=== PATIENT | female | born 1935 | race Caucasian/White ===

== ENCOUNTER 2018-04-04 09:35 | Day surgery (SDC) | payer OTHER, MEDICARE ==
[2018-03-29 15:41] VITALS: BMI 27.4
[2018-04-04] MEDS ORDERED: ONABOTULINUMTOXINA 200 UNIT/VIAL VIAL NR ONE (12:30)
--- NOTE | 2018-04-04 13:25 | OP ---
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
[2018-04-04] MEDS ORDERED: ONDANSETRON 4 MG/2 ML VIAL IVPUSH PRN (13:37)
[2018-04-04] MEDS ORDERED: LACTATED RINGERS SOLUTION 1,000 ML IV SCH (13:45)
--- NOTE | 2018-04-04 13:47 | OP ---
DATE OF OPERATION: 04/04/2018 PREOPERATIVE DIAGNOSIS: Hyperactive bladder secondary to neurologic disease. POSTOPERATIVE DIAGNOSIS: Hyperactive bladder secondary to neurologic disease. PROCEDURE: Cystoscopy and intravesical injection of Botox. SURGEON: Livan Johnson MD ANESTHESIA: General. DESCRIPTION OF PROCEDURE: The patient was brought in the operating room and placed in the supine position on the operating room table. The patient has a longstanding history of neurologic disease causing overactive bladder. The patient has failed all medication. The patient understands all risks and benefits of the procedure including urinary retention. The patient accepted the risks and the benefits of the procedure and accepts these risks and benefits. The patient was then placed in a dorsal lithotomy position and prepped and draped in the usual sterile manner. Levaquin was given preoperatively for surgical prophylaxis. At this point, cystoscopy was performed. No evidence of bladder stones or neoplasm is noted. There was 2+ bladder trabeculation appreciated. There were 20 injections consisting of Botox each 1 mL are administered above the trigone and the lateral toro of the bladder. They are spaced 1 cm apart. No complications were noted in the injections. The patient tolerated the procedure very well. The disposition of the patient is to the recovery room. Leora [id number]
[2018-04-04 14:04] VITALS: TEMP 97.4
[2018-04-04 15:03] VITALS: BP 148/70; PULSE 76
== END 2018-04-04 14:50 | disposition home or self-care (01) ==
LOC: JASU-SURG 09:35
PROVIDERS: ATTEND Urology
PROC: 3E0K8GC Introduction of Other Therapeutic Substance into Genitourinary Tract, Via Natural or Artificial Opening Endoscopic (ICD-10-PCS; principal; 2018-04-04 11:30)
DX: N32.81 Overactive bladder (principal); N39.41 Urge incontinence; R29.90 Unspecified symptoms and signs involving the nervous system
CPT/HCPCS: 94760; J0585

== ENCOUNTER 2021-10-01 03:13 | Emergency (ER) | payer OTHER, MEDICARE ==
[2021-10-01 03:29] VITALS: BMI 24.3
[2021-10-01] MEDS ORDERED: SODIUM CHLORIDE 500 ML IV STA (03:48)
[2021-10-01 04:50] LABS: BASO % 0.8 % (0-2.0); EOS % 4.2 % (0-4.5); HEMATOCRIT 37.6 % (32.4-45.2); HEMOGLOBIN 12.6 GM/dL (10.7-15.3); LYMPH % 27.1 % (8-40); MCH 28.4 pg (25.7-33.7); MCHC 33.4 g/dl (32.0-36.0); MEAN PLT VOLUME 8.9 fl (7.5-11.1); NEUT % 60.9 % (42.8-82.8); PLATELET COUNT 264 10^3/uL (134-434); RBC 4.42 M/mm3 (3.60-5.2); RDW 14.1 % (11.6-15.6); WHITE BLOOD COUNT 5.4 K/mm3 (4.0-10.0)
[2021-10-01 04:58] LABS: INR 1.27 (0.83-1.09); PROTHROMBIN TIME (PATIENT) 14.6 SEC (9.7-13.0)
[2021-10-01 04:59] LABS: ALBUMIN 2.8 g/dl (3.4-5.0); BLOOD UREA NITROGEN 19.8 mg/dL (7-18); CALCIUM 8.4 mg/dL (8.5-10.1)
[2021-10-01 05:02] LABS: CREATININE 0.7 mg/dL (0.55-1.3)
[2021-10-01 05:04] LABS: BILIRUBIN,TOTAL 0.4 mg/dL (0.2-1); TOT PROT 6.2 g/dl (6.4-8.2)
[2021-10-01 06:46] VITALS: PULSE 67; TEMP 97.5
[2021-10-01 09:46] VITALS: BP 117/67
== END 2021-10-01 09:52 ==
LOC: JER 03:13
PROC: 3E0337Z Introduction of Electrolytic and Water Balance Substance into Peripheral Vein, Percutaneous Approach (ICD-10-PCS; principal; 2021-10-01)
DX: I95.9 Hypotension, unspecified (principal); L03.113 Cellulitis of right upper limb; R21 Rash and other nonspecific skin eruption
CPT/HCPCS: 36415; 70450-TC; 71045-TC-FY; 72125-TC; 80053; 85025; 85610; 85730; 86850; 86900; 86901; 93005; 93010; 99285-25; C9803-CS; U0003; U0005

== ENCOUNTER 2022-06-18 09:01 | Observation (INO) | payer OTHER, MEDICARE ==
[2022-06-18 09:56] LABS: URINE APPEARANCE CLEAR; URINE BILIRUBIN NEGATIVE (NEGATIVE); URINE COLOR YELLOW; URINE GLUCOSE (UA) NEGATIVE (NEGATIVE); URINE KETONE NEGATIVE (NEGATIVE); URINE LEUK ESTERASE NEGATIVE (NEGATIVE); URINE NITRITE NEGATIVE (NEGATIVE); URINE PROTEIN TRACE (NEGATIVE); URINE UROBILINOGEN 0.2 mg/dL (0.2-1.0)
[2022-06-18 11:17] LABS: BASO % 0.7 % (0-2.0); EOS % 4.6 % (0-4.5); HEMATOCRIT 32.7 % (32.4-45.2); HEMOGLOBIN 10.8 GM/dL (10.7-15.3); LYMPH % 26.2 % (8-40); MEAN CELL VOLUME 84.8 fl (80-96); MEAN PLT VOLUME 8.8 fl (7.5-11.1); NEUT % 61.5 % (42.8-82.8); PLATELET COUNT 195 10^3/uL (134-434); RBC 3.85 M/mm3 (3.60-5.2); RDW 14.9 % (11.6-15.6); WHITE BLOOD COUNT 6.7 K/mm3 (4.0-10.0)
[2022-06-18 11:27] LABS: INR 1.08 (0.83-1.09); PROTHROMBIN TIME (PATIENT) 12.5 SEC (9.7-13.0)
[2022-06-18 11:29] LABS: ACTIVATED PTT 31.1 SECONDS (25.2-36.5)
[2022-06-18 11:41] LABS: CALCIUM 9.1 mg/dL (8.5-10.1)
[2022-06-18 11:42] LABS: ALBUMIN 3.2 g/dl (3.4-5.0); BLOOD UREA NITROGEN 18.3 mg/dL (7-18)
[2022-06-18 11:45] LABS: CREATININE 0.7 mg/dL (0.55-1.3)
[2022-06-18 11:46] LABS: BILIRUBIN,TOTAL 0.4 mg/dL (0.2-1)
[2022-06-18] MEDS ORDERED: METOPROLOL TARTRATE 25 MG TABLET (FP) PO ONE (13:17)
[2022-06-18 13:56] VITALS: RESP 18
[2022-06-18] MEDS ORDERED: CHOLECALCIFEROL (VIT D3) 1,000 UNIT (25 MCG) TABLET ONE (14:08)
[2022-06-18] MEDS ORDERED: PANTOPRAZOLE 40 MG TABLET PO ONE (14:08)
[2022-06-18] MEDS ORDERED: METOPROLOL TARTRATE 25 MG TABLET (FP) ONE (14:08)
[2022-06-18] MEDS: CHOLECALCIFEROL (VIT D3) 1,000 UNIT (25 MCG) TABLET PO SCH (14:41)
[2022-06-18] MEDS: PANTOPRAZOLE 40 MG TABLET PO SCH (14:41)
[2022-06-18 16:32] VITALS: BMI 23.1
[2022-06-18] MEDS: LORazepam 2 MG/ML SDV VIAL IVPB PRN (18:01)
[2022-06-18] MEDS: RIVASTIGMINE 9.5 MG/24 HOURS TRANSDERMAL PATCH TD SCH (20:13)
[2022-06-18] MEDS: TOLTERODINE TARTRATE LA 4 MG CAP.SR.24H (FP) PO SCH (20:13)
[2022-06-18] MEDS: MEMANTINE HCL 5 MG TABLET (UD) PO SCH (21:44)
[2022-06-18] MEDS: METOPROLOL TARTRATE 25 MG TABLET (FP) PO SCH (21:44)
[2022-06-18] MEDS ORDERED: QUEtiapine FUMARATE 25 MG TABLET PO SCH (22:00)
[2022-06-18] MEDS ORDERED: MELATONIN 5 MG TABLETS PO SCH (22:00)
[2022-06-19] MEDS: LORazepam 2 MG/ML SDV VIAL IVPB PRN (02:08)
[2022-06-19] MEDS: PANTOPRAZOLE 40 MG TABLET PO SCH (09:59)
[2022-06-19] MEDS: CHOLECALCIFEROL (VIT D3) 1,000 UNIT (25 MCG) TABLET PO SCH (09:59)
[2022-06-19] MEDS: MEMANTINE HCL 5 MG TABLET (UD) PO SCH (09:59)
[2022-06-19] MEDS: METOPROLOL TARTRATE 25 MG TABLET (FP) PO SCH (09:59)
[2022-06-19] MEDS ORDERED: ASCORBIC ACID 500 MG TABLET (FP) PO SCH (10:00)
[2022-06-19] MEDS: TOLTERODINE TARTRATE LA 4 MG CAP.SR.24H (FP) PO SCH (10:00)
[2022-06-19 15:02] VITALS: BP 114/55; PULSE 65; TEMP 97.4
[2022-06-19] MEDS: RIVASTIGMINE 9.5 MG/24 HOURS TRANSDERMAL PATCH TD SCH (16:01)
== END 2022-06-19 16:41 | disposition home or self-care (01) ==
LOC: JER 09:01 → JERBED 11:58 → J4W 14:52
PROVIDERS: ADMIT Internal Medicine; ATTEND Internal Medicine
PROC: 3E033GC Introduction of Other Therapeutic Substance into Peripheral Vein, Percutaneous Approach (ICD-10-PCS; principal; 2022-06-18)
DX: S06.0XAA Concussion with loss of consciousness status unknown, initial encounter (principal); R55 Syncope and collapse; F03.90 Unspecified dementia, unspecified severity, without behavioral disturbance, psychotic disturbance, mood disturbance, and anxiety; I48.91 Unspecified atrial fibrillation; W17.89XA Other fall from one level to another, initial encounter; I11.9 Hypertensive heart disease without heart failure; Y93.9 Activity, unspecified; Y92.9 Unspecified place or not applicable; R29.6 Repeated falls; I73.9 Peripheral vascular disease, unspecified; N32.81 Overactive bladder; M62.81 Muscle weakness (generalized); I25.2 Old myocardial infarction; I25.10 Atherosclerotic heart disease of native coronary artery without angina pectoris; Z96.652 Presence of left artificial knee joint; Z87.891 Personal history of nicotine dependence
CPT/HCPCS: 0241U-QW; 36415; 70450-TC; 71045-TC-FY; 72125-TC; 72170-TC-FY; 80053; 81003; 84484; 85025; 85610; 85730; 86850; 86900; 86901; 87086; 93005; 93010; 93306-TC; 93880-TC; 96374; 99285-25; G0378

== ENCOUNTER 2022-09-02 05:23 | Emergency (ER) | payer OTHER, MEDICARE ==
[2022-09-02 05:48] VITALS: BMI 22.6
[2022-09-02 06:44] LABS: BASO % 1.1 % (0-2.0); EOS % 5.5 % (0-4.5); HEMATOCRIT 32.5 % (32.4-45.2); LYMPH % 23.1 % (8-40); MCH 27.2 pg (25.7-33.7); MCHC 33.7 g/dl (32.0-36.0); MEAN CELL VOLUME 80.8 fl (80-96); MEAN PLT VOLUME 9.2 fl (7.5-11.1); MONO % 7.1 % (3.8-10.2); NEUT % 63.2 % (42.8-82.8); PLATELET COUNT 190 10^3/uL (134-434); RBC 4.03 M/mm3 (3.60-5.2); RDW 15.5 % (11.6-15.6); WHITE BLOOD COUNT 6.8 K/mm3 (4.0-10.0)
[2022-09-02 06:47] LABS: EPI CELLS >36 /uL (0-25.1); HYALINE CASTS 1 /uL (0-3.1); URINE APPEARANCE CLEAR; URINE BACTERIA 185 /uL (0-1359); URINE BILIRUBIN NEGATIVE (NEGATIVE); URINE COLOR YELLOW; URINE GLUCOSE (UA) NEGATIVE (NEGATIVE); URINE KETONE NEGATIVE (NEGATIVE); URINE LEUK ESTERASE 2+ (NEGATIVE); URINE NITRITE NEGATIVE (NEGATIVE); URINE PROTEIN NEGATIVE (NEGATIVE); URINE RBC 20 /uL (0-23.9); URINE UROBILINOGEN 0.2 mg/dL (0.2-1.0); URINE WBC 250 /uL (0-25.8)
[2022-09-02 06:52] LABS: INR 1.06 (0.83-1.09); PROTHROMBIN TIME (PATIENT) 12.3 SEC (9.7-13.0)
[2022-09-02 06:55] LABS: ACTIVATED PTT 30.1 SECONDS (25.2-36.5)
[2022-09-02 07:08] LABS: CALCIUM 8.8 mg/dL (8.5-10.1)
[2022-09-02 07:09] LABS: ALBUMIN 3.2 g/dl (3.4-5.0); BLOOD UREA NITROGEN 18.8 mg/dL (7-18)
[2022-09-02 07:11] LABS: CREATININE 0.8 mg/dL (0.55-1.3)
[2022-09-02 07:13] LABS: TOT PROT 7.1 g/dl (6.4-8.2)
[2022-09-02 07:14] LABS: BILIRUBIN,TOTAL 0.5 mg/dL (0.2-1)
[2022-09-02 09:20] LABS: PH,URINE 7.5 (5.0-8.0); URINE APPEARANCE CLEAR; URINE BILIRUBIN NEGATIVE (NEGATIVE); URINE COLOR YELLOW; URINE GLUCOSE (UA) NEGATIVE (NEGATIVE); URINE KETONE NEGATIVE (NEGATIVE); URINE LEUK ESTERASE NEGATIVE (NEGATIVE); URINE NITRITE NEGATIVE (NEGATIVE); URINE PROTEIN NEGATIVE (NEGATIVE); URINE UROBILINOGEN 0.2 mg/dL (0.2-1.0)
[2022-09-02 12:14] VITALS: BP 164/73; PULSE 73; RESP 18; TEMP 98.1
== END 2022-09-02 12:57 | disposition home or self-care (01) ==
LOC: JER 05:23
DX: N30.00 Acute cystitis without hematuria (principal); R35.89 Other polyuria; W19.XXXA Unspecified fall, initial encounter; Y92.129 Unspecified place in nursing home as the place of occurrence of the external cause; Z20.822 Contact with and (suspected) exposure to COVID-19
CPT/HCPCS: 0241U-QW; 36415; 71045-TC-FY; 72170-TC-FY; 80053; 81003; 82550; 83880; 84484; 85025; 85610; 85730; 86850; 86900; 86901; 87086; 93005; 93010; 99285-25

== ENCOUNTER 2022-09-07 07:38 | Emergency (ER) | payer OTHER, MEDICARE ==
[2022-09-07 08:01] VITALS: RESP 18; BMI 22.6
[2022-09-07 08:50] LABS: PH,URINE 7.5 (5.0-8.0); URINE APPEARANCE CLEAR; URINE BILIRUBIN NEGATIVE (NEGATIVE); URINE COLOR YELLOW; URINE GLUCOSE (UA) NEGATIVE (NEGATIVE); URINE KETONE NEGATIVE (NEGATIVE); URINE LEUK ESTERASE NEGATIVE (NEGATIVE); URINE NITRITE NEGATIVE (NEGATIVE); URINE PROTEIN NEGATIVE (NEGATIVE); URINE UROBILINOGEN 0.2 mg/dL (0.2-1.0)
[2022-09-07 09:09] LABS: POTASSIUM 5.1 mmol/L (3.5-5.1)
[2022-09-07 09:10] LABS: MAGNESIUM 2.4 mg/dL (1.8-2.4)
[2022-09-07 09:13] LABS: BASO % 0.7 % (0-2.0); CALCIUM 9.3 mg/dL (8.5-10.1); EOS % 4.5 % (0-4.5); HEMATOCRIT 32.3 % (32.4-45.2); LYMPH % 20.4 % (8-40); MCH 27.3 pg (25.7-33.7); MEAN CELL VOLUME 80.3 fl (80-96); MEAN PLT VOLUME 8.5 fl (7.5-11.1); MONO % 6.4 % (3.8-10.2); PLATELET COUNT 223 10^3/uL (134-434); RBC 4.02 M/mm3 (3.60-5.2); RDW 15.9 % (11.6-15.6); WHITE BLOOD COUNT 8.3 K/mm3 (4.0-10.0)
[2022-09-07 09:14] LABS: ALBUMIN 3.5 g/dl (3.4-5.0); BLOOD UREA NITROGEN 21.2 mg/dL (7-18); PHOSPHOROUS 3.6 mg/dL (2.5-4.9)
[2022-09-07 09:17] LABS: CREATININE 0.7 mg/dL (0.55-1.3)
[2022-09-07 09:18] LABS: BILIRUBIN,TOTAL 0.5 mg/dL (0.2-1); TOT PROT 7.8 g/dl (6.4-8.2)
[2022-09-07] MEDS ORDERED: ACETAMINOPHEN 325 MG TABLET (FP) PO ONE (09:40)
[2022-09-07] MEDS ORDERED: ACETAMINOPHEN 325 MG TABLET (FP) ONE (09:48)
[2022-09-07 11:37] VITALS: BP 152/58; PULSE 72; TEMP 97.8
== END 2022-09-07 11:45 | disposition home or self-care (01) ==
LOC: JER 07:38
DX: M79.604 Pain in right leg (principal); R60.0 Localized edema; R35.0 Frequency of micturition; M17.11 Unilateral primary osteoarthritis, right knee
CPT/HCPCS: 36415; 73521-TC-FY; 73552-TC-RT-FY; 80053; 81003; 83735; 83880; 84100; 84484; 85025; 87086; 93005; 93010; 99285-25

== ENCOUNTER 2022-09-26 11:12 | Inpatient (IN) | payer OTHER, MEDICARE ==
[2022-09-26] MEDS ORDERED: LIDOCAINE 5% TOPICAL PATCH TP ONE (12:20)
[2022-09-26] MEDS ORDERED: traMADol HCL 50 MG TABLET PO ONE (12:21)
[2022-09-26] MEDS ORDERED: HALOPERIDOL LACTATE 5 MG/ML IM ONE ×4 (12:49→14:14)
[2022-09-26] MEDS ORDERED: LIDOCAINE 5% TOPICAL PATCH ONE (12:52)
[2022-09-26] MEDS ORDERED: traMADol HCL 50 MG TABLET ONE (12:52)
[2022-09-26 13:34] LABS: BASO % 0.7 % (0-2.0); EOS % 5.6 % (0-4.5); HEMOGLOBIN 9.7 GM/dL (10.7-15.3); LYMPH % 22.8 % (8-40); MCH 27.2 pg (25.7-33.7); MCHC 33.3 g/dl (32.0-36.0); MEAN CELL VOLUME 81.7 fl (80-96); MEAN PLT VOLUME 8.4 fl (7.5-11.1); MONO % 6.2 % (3.8-10.2); NEUT % 64.7 % (42.8-82.8); PLATELET COUNT 262 10^3/uL (134-434); RBC 3.55 M/mm3 (3.60-5.2); RDW 16.2 % (11.6-15.6); WHITE BLOOD COUNT 7.6 K/mm3 (4.0-10.0)
[2022-09-26 13:41] LABS: INR 1.07 (0.83-1.09); PROTHROMBIN TIME (PATIENT) 12.4 SEC (9.7-13.0)
[2022-09-26 14:04] LABS: ALBUMIN 3.1 g/dl (3.4-5.0)
[2022-09-26 14:08] LABS: BILIRUBIN,TOTAL 0.4 mg/dL (0.2-1); CREATININE 0.7 mg/dL (0.55-1.3)
[2022-09-26] MEDS ORDERED: MIDAZOLAM HCL 2 MG/2 ML SINGLE DOSE VIAL IVPUSH ONE (14:09)
[2022-09-26] MEDS ORDERED: MIDAZOLAM HCL 2 MG/2 ML SINGLE DOSE VIAL ONE (14:14)
[2022-09-26] MEDS ORDERED: ACETAMINOPHEN 500 MG TABLET (FP) PO PRN (15:24)
[2022-09-26] MEDS ORDERED: FUROSEMIDE 40 MG/4 ML INJECTABLE VIAL IVPUSH ONE ×3 (15:24→15:33)
[2022-09-26] MEDS ORDERED: ALBUTEROL SO4 2.5/IPRATROPIUM 0.5 INH SOL 3 ML VIAL.NEB. NEB ONE (15:47)
[2022-09-26] MEDS ORDERED: FUROSEMIDE 40 MG/4 ML INJECTABLE VIAL ONE (15:59)
[2022-09-26 16:33] VITALS: BMI 27.8
[2022-09-26] MEDS: PANTOPRAZOLE 40 MG TABLET PO SCH (17:27)
[2022-09-26] MEDS ORDERED: IRON SUCROSE INJECTION 300 MG in SODIUM CHLORIDE 235 ML IVPB ONE (19:00)
[2022-09-26] MEDS ORDERED: LIDOCAINE PATCH REMOVAL MC ONE (22:00)
[2022-09-26] MEDS: HEPARIN NA (PORCINE) 5,000 UNITS/ML 1ML VIAL SQ SCH (22:13)
[2022-09-26] MEDS: MEMANTINE HCL 10 MG TABLET (FP) PO SCH (22:13)
[2022-09-26] MEDS: METOPROLOL TARTRATE 25 MG TABLET (FP) PO SCH (22:13)
[2022-09-26] MEDS: MELATONIN 5 MG TABLETS PO SCH (22:14)
[2022-09-27] MEDS: HEPARIN NA (PORCINE) 5,000 UNITS/ML 1ML VIAL SQ SCH ×3 (06:36→21:35)
[2022-09-27] MEDS ORDERED: LORazepam 2 MG/ML SDV VIAL IVPUSH PRN (10:13)
[2022-09-27] MEDS: PANTOPRAZOLE 40 MG TABLET PO SCH (10:46)
[2022-09-27] MEDS: METOPROLOL TARTRATE 25 MG TABLET (FP) PO SCH ×2 (10:46→21:35)
[2022-09-27] MEDS: MEMANTINE HCL 10 MG TABLET (FP) PO SCH ×2 (10:46→21:35)
[2022-09-27] MEDS: CHOLECALCIFEROL (VIT D3) 1,000 UNIT (25 MCG) TABLET PO SCH (11:15)
[2022-09-27] MEDS: ASCORBIC ACID 500 MG TABLET (FP) PO SCH (11:16)
[2022-09-27] MEDS: FUROSEMIDE 40 MG/4 ML INJECTABLE VIAL IVPUSH SCH (11:16)
[2022-09-27] MEDS: RIVASTIGMINE 9.5 MG/24 HOURS TRANSDERMAL PATCH TD SCH (11:54)
[2022-09-27 11:57] LABS: BASO % 0.5 % (0-2.0); EOS % 1.5 % (0-4.5); HEMATOCRIT 29.8 % (32.4-45.2); HEMOGLOBIN 10.1 GM/dL (10.7-15.3); LYMPH % 12.4 % (8-40); MCH 27.4 pg (25.7-33.7); MCHC 33.9 g/dl (32.0-36.0); MEAN CELL VOLUME 80.8 fl (80-96); MEAN PLT VOLUME 8.6 fl (7.5-11.1); MONO % 4.3 % (3.8-10.2); NEUT % 81.3 % (42.8-82.8); PLATELET COUNT 241 10^3/uL (134-434); RBC 3.69 M/mm3 (3.60-5.2); RDW 15.7 % (11.6-15.6); WHITE BLOOD COUNT 7.6 K/mm3 (4.0-10.0)
[2022-09-27 12:18] LABS: CALCIUM 8.7 mg/dL (8.5-10.1); POTASSIUM 4.6 mmol/L (3.5-5.1)
[2022-09-27 12:20] LABS: BLOOD UREA NITROGEN 15.3 mg/dL (7-18)
[2022-09-27 12:23] LABS: CREATININE 0.8 mg/dL (0.55-1.3)
[2022-09-27] MEDS: TOLTERODINE TARTRATE LA 4 MG CAP.SR.24H (FP) PO SCH (12:38)
[2022-09-27] MEDS ORDERED: IRON SUCROSE INJECTION 300 MG in SODIUM CHLORIDE 235 ML IVPB ONE (16:55)
[2022-09-27 20:48] VITALS: RESP 18
[2022-09-27] MEDS: MELATONIN 5 MG TABLETS PO SCH (21:35)
[2022-09-28] MEDS: HEPARIN NA (PORCINE) 5,000 UNITS/ML 1ML VIAL SQ SCH ×2 (06:30→13:49)
[2022-09-28 09:14] LABS: BASO % 0.4 % (0-2.0); EOS % 0.4 % (0-4.5); HEMATOCRIT 31.6 % (32.4-45.2); HEMOGLOBIN 10.4 GM/dL (10.7-15.3); LYMPH % 10.2 % (8-40); MCH 26.9 pg (25.7-33.7); MCHC 32.9 g/dl (32.0-36.0); MEAN CELL VOLUME 81.6 fl (80-96); MEAN PLT VOLUME 8.1 fl (7.5-11.1); MONO % 7.8 % (3.8-10.2); NEUT % 81.2 % (42.8-82.8); PLATELET COUNT 236 10^3/uL (134-434); RBC 3.87 M/mm3 (3.60-5.2); RDW 15.8 % (11.6-15.6); WHITE BLOOD COUNT 9.1 K/mm3 (4.0-10.0)
[2022-09-28 09:24] LABS: POTASSIUM 4.2 mmol/L (3.5-5.1)
[2022-09-28 09:32] LABS: BLOOD UREA NITROGEN 14.4 mg/dL (7-18); CALCIUM 8.9 mg/dL (8.5-10.1); MAGNESIUM 2.3 mg/dL (1.8-2.4)
[2022-09-28 09:36] LABS: CREATININE 0.8 mg/dL (0.55-1.3); PHOSPHOROUS 4.3 mg/dL (2.5-4.9)
[2022-09-28] MEDS: FUROSEMIDE 40 MG/4 ML INJECTABLE VIAL IVPUSH SCH (09:48)
[2022-09-28] MEDS: MEMANTINE HCL 10 MG TABLET (FP) PO SCH (09:48)
[2022-09-28] MEDS: PANTOPRAZOLE 40 MG TABLET PO SCH (09:48)
[2022-09-28] MEDS: METOPROLOL TARTRATE 25 MG TABLET (FP) PO SCH (09:48)
[2022-09-28] MEDS: CHOLECALCIFEROL (VIT D3) 1,000 UNIT (25 MCG) TABLET PO SCH (09:48)
[2022-09-28] MEDS: TOLTERODINE TARTRATE LA 4 MG CAP.SR.24H (FP) PO SCH (09:49)
[2022-09-28] MEDS: ASCORBIC ACID 500 MG TABLET (FP) PO SCH (09:50)
[2022-09-28] MEDS: RIVASTIGMINE 9.5 MG/24 HOURS TRANSDERMAL PATCH TD SCH (09:50)
[2022-09-28 14:37] VITALS: BP 133/72; PULSE 100; TEMP 98.3
== END 2022-09-28 17:04 | disposition home or self-care (01) | DRG 640 ==
LOC: JER 11:12 → JERBED 15:13 → OBSVTOIN 15:31 → J8W 17:05
PROVIDERS: ADMIT Internal Medicine; ATTEND Internal Medicine
DX: E87.70 Fluid overload, unspecified (principal); R53.2 Functional quadriplegia; I48.20 Chronic atrial fibrillation, unspecified; F03.911 Unspecified dementia, unspecified severity, with agitation; I10 Essential (primary) hypertension; I25.10 Atherosclerotic heart disease of native coronary artery without angina pectoris; N32.81 Overactive bladder; M54.50 Low back pain, unspecified; I73.9 Peripheral vascular disease, unspecified; D50.9 Iron deficiency anemia, unspecified
CPT/HCPCS: 0241U-QW; 36415; 71045-TC-FY; 72100-TC-FY; 80048; 80053; 82728; 83540; 83550; 83735; 84100; 85025; 85610; 85730; 93005; 93010; 93970-TC; 97161-GP; 99285-25; G0378; J1644; J1756

== ENCOUNTER 2022-10-12 00:12 | Emergency (ER) | payer OTHER, MEDICARE ==
[2022-10-12 00:26] VITALS: RESP 17; TEMP 97.4; BMI 29.0
[2022-10-12] MEDS ORDERED: morphine CARPU-JECT 2 MG/1 ML DISP.SYRIN IVPUSH ONE (00:35)
[2022-10-12] MEDS ORDERED: LORazepam 2 MG/ML SDV VIAL IVPB ONE (00:52)
[2022-10-12] MEDS ORDERED: HALOPERIDOL LACTATE 5 MG/ML IM ONE (01:12)
[2022-10-12] MEDS ORDERED: MIDAZOLAM HCL 2 MG/2 ML SINGLE DOSE VIAL ONE (01:15)
[2022-10-12] MEDS ORDERED: MIDAZOLAM HCL 2 MG/2 ML SINGLE DOSE VIAL IVPUSH ONE (01:15)
[2022-10-12 01:22] LABS: BASO % 0.6 % (0-2.0); EOS % 3.9 % (0-4.5); LYMPH % 23.7 % (8-40); MCH 27.6 pg (25.7-33.7); MCHC 33.4 g/dl (32.0-36.0); MEAN CELL VOLUME 82.6 fl (80-96); MEAN PLT VOLUME 7.8 fl (7.5-11.1); MONO % 5.2 % (3.8-10.2); NEUT % 66.6 % (42.8-82.8); PLATELET COUNT 333 10^3/uL (134-434); RBC 3.63 M/mm3 (3.60-5.2)
[2022-10-12 01:40] LABS: POTASSIUM 4.7 mmol/L (3.5-5.1)
[2022-10-12 01:42] LABS: CALCIUM 8.8 mg/dL (8.5-10.1)
[2022-10-12 01:43] LABS: ALBUMIN 2.7 g/dl (3.4-5.0); BLOOD UREA NITROGEN 16.8 mg/dL (7-18)
[2022-10-12 01:46] LABS: CREATININE 0.8 mg/dL (0.55-1.3)
[2022-10-12 01:48] LABS: BILIRUBIN,TOTAL 0.2 mg/dL (0.2-1); TOT PROT 6.7 g/dl (6.4-8.2)
[2022-10-12 08:04] VITALS: BP 147/75; PULSE 77
== END 2022-10-12 10:54 | disposition home or self-care (01) ==
LOC: JER 00:12
PROC: 3E033GC Introduction of Other Therapeutic Substance into Peripheral Vein, Percutaneous Approach (ICD-10-PCS; principal; 2022-10-12)
PROC: 3E033GC Introduction of Other Therapeutic Substance into Peripheral Vein, Percutaneous Approach (ICD-10-PCS; 2022-10-12)
PROC: 3E033GC Introduction of Other Therapeutic Substance into Peripheral Vein, Percutaneous Approach (ICD-10-PCS; 2022-10-12)
DX: M54.9 Dorsalgia, unspecified (principal); M25.551 Pain in right hip; R60.0 Localized edema; W19.XXXA Unspecified fall, initial encounter; Z20.822 Contact with and (suspected) exposure to COVID-19
CPT/HCPCS: 36415; 70450-TC; 71045-TC-FY; 72125-TC; 72170-TC-FY; 80053; 84484; 85025; 87635; 93005; 93010; 99285-25

== ENCOUNTER 2023-08-31 09:40 | Inpatient (IN) | payer OTHER, MEDICARE ==
[2023-08-31] MEDS ORDERED: FUROSEMIDE 40 MG/4 ML INJECTABLE VIAL ONE (10:59)
[2023-08-31] MEDS: FUROSEMIDE 40 MG/4 ML INJECTABLE VIAL IVPUSH ONE (11:21)
[2023-08-31] MEDS ORDERED: ACETAMINOPHEN 325 MG TABLET (FP) PO PRN (11:24)
[2023-08-31 11:29] LABS: HEMATOCRIT 34.9 % (32.4-45.2); HEMOGLOBIN 11.6 GM/dL (10.7-15.3); MCH 29.8 pg (25.7-33.7); MCHC 33.3 g/dl (32.0-36.0); MEAN CELL VOLUME 89.6 fl (80-96); MEAN PLT VOLUME 8.6 fl (7.5-11.1); PLATELET COUNT 210 10^3/uL (134-434); RDW 14.5 % (11.6-15.6); WHITE BLOOD COUNT 10.3 K/mm3 (4.0-10.0)
[2023-08-31 11:48] LABS: POTASSIUM 4.9 mmol/L (3.5-5.1)
[2023-08-31 11:50] LABS: ALBUMIN 3.1 g/dl (3.4-5.0)
[2023-08-31 11:52] LABS: BLOOD UREA NITROGEN 27.2 mg/dL (7-18)
[2023-08-31 11:55] LABS: BILIRUBIN,TOTAL 0.3 mg/dL (0.2-1); TOT PROT 7.2 g/dl (6.4-8.2)
[2023-08-31] MEDS: PANTOPRAZOLE 40 MG TABLET PO SCH (11:57)
[2023-08-31] MEDS: LIDOCAINE 4% PATCH TP SCH (11:57)
[2023-08-31 12:48] VITALS: BMI 31.9
[2023-08-31] MEDS: TOLTERODINE TARTRATE LA 4 MG CAP.SR.24H (FP) PO SCH (12:49)
[2023-08-31] MEDS: MINERAL OIL/PET HY-PHL TOPICAL OINTMENT 454 GM JAR TP SCH (12:49)
[2023-08-31] MEDS: HEPARIN NA (PORCINE) 5,000 UNITS/ML 1ML VIAL SQ SCH (13:39)
[2023-08-31] MEDS: MELATONIN 5 MG TABLETS PO SCH (21:32)
[2023-08-31] MEDS: LIDOCAINE PATCH REMOVAL MC SCH (21:33)
[2023-08-31] MEDS: METOPROLOL TARTRATE 25 MG TABLET (FP) PO SCH (21:33)
[2023-08-31] MEDS: QUEtiapine FUMARATE 25 MG TABLET PO SCH (21:33)
[2023-08-31] MEDS: MEMANTINE HCL 10 MG TABLET (FP) PO SCH (21:33)
[2023-09-01] MEDS ORDERED: LIDOCAINE 5% TOPICAL PATCH TP SCH (10:00)
[2023-09-01] MEDS: ASCORBIC ACID 500 MG TABLET (FP) PO SCH (10:01)
[2023-09-01] MEDS: ACETAMINOPHEN 500 MG TABLET (FP) PO SCH (10:01)
[2023-09-01] MEDS: CHOLECALCIFEROL (VIT D3) 1,000 UNIT (25 MCG) TABLET PO SCH (10:02)
[2023-09-01] MEDS: FUROSEMIDE 40 MG/4 ML INJECTABLE VIAL IVPUSH SCH (11:36)
[2023-09-01] MEDS ORDERED: NYSTATIN POWDER 100,000 UNITS/GM - 15 GM TOPICAL POWDER TP SCH (14:00)
[2023-09-01] MEDS: BREXPIPRAZOLE (REXULTI) 1 MG TABLET (RESTRICTED TO PSYCIATRY) PO SCH (14:58)
[2023-09-01] MEDS: QUEtiapine FUMARATE 100 MG TABLET (FP) PO SCH (21:33)
[2023-09-01] MEDS ORDERED: LIDOCAINE PATCH REMOVAL MC SCH (22:00)
[2023-09-02 08:09] LABS: BASO % 0.9 % (0-2.0); EOS % 2.9 % (0-4.5); HEMATOCRIT 33.3 % (32.4-45.2); HEMOGLOBIN 11.2 GM/dL (10.7-15.3); LYMPH % 21.8 % (8-40); MCHC 33.5 g/dl (32.0-36.0); MEAN CELL VOLUME 89.4 fl (80-96); MONO % 7.3 % (3.8-10.2); NEUT % 67.1 % (42.8-82.8); PLATELET COUNT 188 10^3/uL (134-434); RBC 3.73 M/mm3 (3.60-5.2); RDW 14.2 % (11.6-15.6); WHITE BLOOD COUNT 7.5 K/mm3 (4.0-10.0)
[2023-09-02 08:43] LABS: POTASSIUM 4.4 mmol/L (3.5-5.1)
[2023-09-02 09:06] LABS: BLOOD UREA NITROGEN 27.2 mg/dL (7-18); CALCIUM 9.1 mg/dL (8.5-10.1); MAGNESIUM 2.4 mg/dL (1.8-2.4)
[2023-09-02 09:10] LABS: CREATININE 1.1 mg/dL (0.55-1.3)
[2023-09-03 08:43] LABS: BASO % 0.7 % (0-2.0); EOS % 4.1 % (0-4.5); HEMATOCRIT 36.5 % (32.4-45.2); HEMOGLOBIN 12.2 GM/dL (10.7-15.3); LYMPH % 19.8 % (8-40); MCH 29.9 pg (25.7-33.7); MCHC 33.5 g/dl (32.0-36.0); MEAN CELL VOLUME 89.1 fl (80-96); MONO % 9.1 % (3.8-10.2); NEUT % 66.3 % (42.8-82.8); PLATELET COUNT 202 10^3/uL (134-434); RDW 14.4 % (11.6-15.6); WHITE BLOOD COUNT 7.7 K/mm3 (4.0-10.0)
[2023-09-03 09:02] LABS: POTASSIUM 4.3 mmol/L (3.5-5.1)
[2023-09-03 09:04] LABS: BLOOD UREA NITROGEN 33.3 mg/dL (7-18)
[2023-09-03 09:07] LABS: CREATININE 1.2 mg/dL (0.55-1.3)
[2023-09-03] MEDS: QUEtiapine FUMARATE 50 MG TABLET PO SCH (09:24)
[2023-09-03] MEDS: FUROSEMIDE 40 MG/4 ML INJECTABLE VIAL IVPUSH SCH (09:26)
[2023-09-04 08:41] LABS: BASO % 0.6 % (0-2.0); EOS % 4.4 % (0-4.5); HEMATOCRIT 34.5 % (32.4-45.2); HEMOGLOBIN 11.6 GM/dL (10.7-15.3); LYMPH % 22.4 % (8-40); MCH 29.9 pg (25.7-33.7); MCHC 33.7 g/dl (32.0-36.0); MEAN CELL VOLUME 88.7 fl (80-96); MEAN PLT VOLUME 8.8 fl (7.5-11.1); MONO % 10.3 % (3.8-10.2); NEUT % 62.3 % (42.8-82.8); PLATELET COUNT 207 10^3/uL (134-434); RBC 3.89 M/mm3 (3.60-5.2); RDW 14.4 % (11.6-15.6); WHITE BLOOD COUNT 6.5 K/mm3 (4.0-10.0)
[2023-09-04 08:48] LABS: POTASSIUM 4.2 mmol/L (3.5-5.1)
[2023-09-04 09:16] LABS: BLOOD UREA NITROGEN 35.2 mg/dL (7-18)
[2023-09-04 09:19] LABS: CREATININE 1.2 mg/dL (0.55-1.3)
[2023-09-05 08:12] LABS: CALCIUM 8.7 mg/dL (8.5-10.1)
[2023-09-05 08:13] LABS: ALBUMIN 2.5 g/dl (3.4-5.0); BLOOD UREA NITROGEN 37.4 mg/dL (7-18)
[2023-09-05 08:16] LABS: CREATININE 1.1 mg/dL (0.55-1.3)
[2023-09-05 08:18] LABS: BILIRUBIN,TOTAL 0.7 mg/dL (0.2-1); TOT PROT 6.6 g/dl (6.4-8.2)
[2023-09-05 08:27] LABS: BASO % 0.5 % (0-2.0); EOS % 4.9 % (0-4.5); HEMATOCRIT 34.4 % (32.4-45.2); HEMOGLOBIN 11.2 GM/dL (10.7-15.3); LYMPH % 19.7 % (8-40); MCHC 32.5 g/dl (32.0-36.0); MEAN CELL VOLUME 89.2 fl (80-96); MEAN PLT VOLUME 8.9 fl (7.5-11.1); MONO % 9.5 % (3.8-10.2); NEUT % 65.4 % (42.8-82.8); PLATELET COUNT 208 10^3/uL (134-434); RBC 3.86 M/mm3 (3.60-5.2); WHITE BLOOD COUNT 6.8 K/mm3 (4.0-10.0)
[2023-09-05] MEDS ORDERED: FUROSEMIDE 40 MG TABLET (FP) PO SCH (10:00)
[2023-09-05] MEDS: ACETAMINOPHEN 325 MG TABLET (FP) PO PRN (16:40)
[2023-09-06 07:32] LABS: BASO % 0.8 % (0-2.0); EOS % 4.8 % (0-4.5); HEMATOCRIT 33.6 % (32.4-45.2); HEMOGLOBIN 10.9 GM/dL (10.7-15.3); LYMPH % 17.8 % (8-40); MCH 28.9 pg (25.7-33.7); MCHC 32.5 g/dl (32.0-36.0); MEAN CELL VOLUME 89.2 fl (80-96); MEAN PLT VOLUME 8.4 fl (7.5-11.1); MONO % 7.7 % (3.8-10.2); NEUT % 68.9 % (42.8-82.8); PLATELET COUNT 212 10^3/uL (134-434); RBC 3.76 M/mm3 (3.60-5.2); RDW 14.2 % (11.6-15.6); WHITE BLOOD COUNT 7.6 K/mm3 (4.0-10.0)
[2023-09-06 07:52] LABS: POTASSIUM 4.1 mmol/L (3.5-5.1)
[2023-09-06 08:01] LABS: BLOOD UREA NITROGEN 51.1 mg/dL (7-18); CALCIUM 8.9 mg/dL (8.5-10.1)
[2023-09-06 08:04] LABS: CREATININE 1.5 mg/dL (0.55-1.3)
[2023-09-06 14:10] VITALS: BP 109/60; PULSE 87; RESP 18; TEMP 97.8
== END 2023-09-06 16:51 | disposition home or self-care (01) | DRG 291 ==
LOC: JER 09:40 → JERBED 10:46 → J6S 11:35 → OBSVTOIN 13:58
PROVIDERS: ADMIT Internal Medicine; ATTEND Internal Medicine
DX: I11.0 Hypertensive heart disease with heart failure (principal); I50.33 Acute on chronic diastolic (congestive) heart failure; I48.0 Paroxysmal atrial fibrillation; F03.90 Unspecified dementia, unspecified severity, without behavioral disturbance, psychotic disturbance, mood disturbance, and anxiety; I25.10 Atherosclerotic heart disease of native coronary artery without angina pectoris; N32.81 Overactive bladder; M54.50 Low back pain, unspecified; G89.29 Other chronic pain
CPT/HCPCS: 0241U-QW; 36415; 71045-TC-FY; 80048; 80053; 83735; 85025; 85027; 93005; 93010; 93306-TC; 97116-GP; 97161-GP; 99285-25; G0378; J1644

== ENCOUNTER 2023-09-29 18:24 | Inpatient (IN) | payer OTHER, MEDICARE ==
[2023-09-29 19:09] LABS: BASO % 0.2 % (0-2.0); EOS % 0.8 % (0-4.5); HEMATOCRIT 41.2 % (32.4-45.2); HEMOGLOBIN 13.5 GM/dL (10.7-15.3); LYMPH % 5.6 % (8-40); MCH 29.3 pg (25.7-33.7); MCHC 32.7 g/dl (32.0-36.0); MEAN CELL VOLUME 89.6 fl (80-96); MEAN PLT VOLUME 8.4 fl (7.5-11.1); MONO % 2.3 % (3.8-10.2); NEUT % 91.1 % (42.8-82.8); PLATELET COUNT 243 10^3/uL (134-434); WHITE BLOOD COUNT 9.2 K/mm3 (4.0-10.0)
[2023-09-29 19:11] LABS: VENOUS BASE EXCESS -2.9 mmol/L (-2-2); VENOUS O2 SATURATION 17.9 % (70-80); VENOUS PCO2 61.4 mmHg (38-52); VENOUS PH 7.239 (7.310-7.410)
[2023-09-29 19:21] LABS: INR 1.11 (0.83-1.09); PROTHROMBIN TIME (PATIENT) 12.5 SEC (9.7-13.0)
[2023-09-29] MEDS ORDERED: ACETAMINOPHEN INJECTION 100 ML IVPB ONE (19:26)
[2023-09-29 19:31] LABS: POTASSIUM 5.8 mmol/L (3.5-5.1)
[2023-09-29 19:32] LABS: CALCIUM 9.5 mg/dL (8.5-10.1)
[2023-09-29 19:33] LABS: BLOOD UREA NITROGEN 31.1 mg/dL (7-18)
[2023-09-29] MEDS: SODIUM CHLORIDE 0.9% 500 ML INFUS.BAG IV ONE ×4 (19:35→22:52)
[2023-09-29] MEDS: ACETAMINOPHEN 1000 MG/100 ML BAG IVPB ONE (19:35)
[2023-09-29 19:36] LABS: CREATININE 1.3 mg/dL (0.55-1.3)
[2023-09-29 19:38] LABS: BILIRUBIN,TOTAL 0.5 mg/dL (0.2-1)
[2023-09-29 19:51] LABS: ANISOCYTOSIS 2+; MACROCYTOSIS 0
[2023-09-29] MEDS ORDERED: CEFTRIAXONE 1 GM/50 ML BAG ONE (20:07)
[2023-09-29] MEDS ORDERED: AZITHROMYCIN IVPB 500 MG/250 ML BAG IVPB ONE (20:07)
[2023-09-29] MEDS ORDERED: DEXTROSE 50%-WATER 25 GM/50 ML DISP.SYRIN ONE (20:07)
[2023-09-29] MEDS ORDERED: INSULIN REGULAR HUMAN 100 UNITS/ML *VIAL ONE (20:15)
[2023-09-29 20:17] LABS: LACTIC ACID 5.8 mmol/L (0.4-2.0)
[2023-09-29] MEDS: DEXTROSE 50%-WATER - 25 GM/50 ML VIAL IVPUSH ONE (20:17)
[2023-09-29] MEDS: INSULIN REGULAR HUMAN 100 UNITS/ML *VIAL IVPUSH ONE (20:18)
[2023-09-29] MEDS ORDERED: LACTATED RINGERS SOLUTION 1000 ML INFUS.BAG IV ONE (20:19)
[2023-09-29] MEDS ORDERED: CALCIUM GLUCONATE 10% - 1,000 MG/10 ML VIAL ONE (20:25)
[2023-09-29] MEDS: CALCIUM GLUCONATE 10% - 1,000 MG/10 ML VIAL IVPB ONE (20:35)
[2023-09-29] MEDS: AZITHROMYCIN IVPB 500 MG in DEXTROSE 5%-WATER - 250 ML IVPB ONE (21:08)
[2023-09-29 21:12] LABS: EPI CELLS 28 /uL (0-25.1); HYALINE CASTS 3 /uL (0-3.1); PH,URINE 5.5 (5.0-8.0); URINE APPEARANCE TURBID; URINE BACTERIA 8544 /uL (0-1359); URINE BILIRUBIN NEGATIVE (NEGATIVE); URINE COLOR YELLOW; URINE GLUCOSE (UA) NEGATIVE (NEGATIVE); URINE KETONE TRACE (NEGATIVE); URINE LEUK ESTERASE 3+ (NEGATIVE); URINE NITRITE POSITIVE (NEGATIVE); URINE PROTEIN 2+ (NEGATIVE); URINE RBC 765 /uL (0-23.9); URINE UROBILINOGEN 0.2 mg/dL (0.2-1.0); URINE WBC 31660 /uL (0-25.8)
[2023-09-29 22:23] LABS: LACTIC ACID 2.2 mmol/L (0.4-2.0)
[2023-09-29] MEDS: LACTATED RINGERS SOLUTION 1,000 ML/1,000 ML INFUS.BAG IV SCH (22:52)
[2023-09-29] MEDS ORDERED: NOREPINEPHRINE BITARTRATE 4 MG/4 ML ML IV ONE (23:02)
[2023-09-29] MEDS: NOREPINEPHRINE BITARTRATE 4,000 MCG in DEXTROSE 5%-WATER - 496 ML IV SCH (23:15)
[2023-09-29] MEDS: NOREPINEPHRINE 0.9 % NACL 8 MG/250 ML BAG IVPB SCH (23:41)
[2023-09-30] MEDS ORDERED: VANCOMYCIN 1 GRAM (PRE-DOCKED) 1,000 MG/250 ML BAG IVPB ONE (00:04)
[2023-09-30 00:27] LABS: POTASSIUM 3.7 mmol/L (3.5-5.1)
[2023-09-30 00:29] LABS: BLOOD UREA NITROGEN 23.4 mg/dL (7-18)
[2023-09-30 00:32] LABS: CREATININE 0.9 mg/dL (0.55-1.3)
[2023-09-30 00:33] LABS: BILIRUBIN,TOTAL 0.4 mg/dL (0.2-1); PHOSPHOROUS 2.9 mg/dL (2.5-4.9); TOT PROT 6.2 g/dl (6.4-8.2)
[2023-09-30] MEDS: VANCOMYCIN/WATER FOR INJ (PEG) 1,000 MG/200 ML BAG IVPB ONE (00:35)
[2023-09-30 00:55] LABS: ALBUMIN 2.3 g/dl (3.4-5.0); CALCIUM 7.9 mg/dL (8.5-10.1)
[2023-09-30] MEDS: QUEtiapine FUMARATE 25 MG TABLET PO SCH (01:44)
[2023-09-30] MEDS: MUPIROCIN 2% TOPICAL OINTMENT FOR DECOLONIZATION NS SCH (02:28)
[2023-09-30 07:15] LABS: BASO % 0.3 % (0-2.0); EOS % 1.9 % (0-4.5); HEMATOCRIT 34.8 % (32.4-45.2); HEMOGLOBIN 11.3 GM/dL (10.7-15.3); LYMPH % 13.9 % (8-40); MCH 29.2 pg (25.7-33.7); MCHC 32.3 g/dl (32.0-36.0); MEAN CELL VOLUME 90.2 fl (80-96); MEAN PLT VOLUME 8.4 fl (7.5-11.1); MONO % 4.9 % (3.8-10.2); PLATELET COUNT 177 10^3/uL (134-434); RBC 3.86 M/mm3 (3.60-5.2); RDW 13.9 % (11.6-15.6); WHITE BLOOD COUNT 5.7 K/mm3 (4.0-10.0)
[2023-09-30 07:22] LABS: INR 1.08 (0.83-1.09); PROTHROMBIN TIME (PATIENT) 12.2 SEC (9.7-13.0)
[2023-09-30 07:25] LABS: ACTIVATED PTT 21.5 SECONDS (25.2-36.5)
[2023-09-30 07:34] LABS: POTASSIUM 4.2 mmol/L (3.5-5.1)
[2023-09-30 07:38] LABS: BLOOD UREA NITROGEN 18.1 mg/dL (7-18); CALCIUM 8.1 mg/dL (8.5-10.1)
[2023-09-30 07:42] LABS: CREATININE 0.9 mg/dL (0.55-1.3)
[2023-09-30] MEDS: PANTOPRAZOLE SODIUM 40 MG VIAL IVPUSH SCH (10:29)
[2023-09-30] MEDS: AZITHROMYCIN IVPB 250 MG in DEXTROSE 5%-WATER - 250 ML IVPB SCH (10:29)
[2023-09-30] MEDS: ENOXAPARIN NA (PORCINE) 40 MG/0.4 ML DISP.SYRIN SQ SCH (10:29)
[2023-09-30] MEDS: LACTATED RINGERS SOLUTION 1,000 ML/1,000 ML INFUS.BAG IV SCH (10:30)
[2023-09-30] MEDS: CEFTRIAXONE 1 GM in DEXTROSE 5%-WATER - 50 ML IVPB SCH (10:30)
[2023-09-30] MEDS ORDERED: NOREPINEPHRINE BITARTRATE 4 MG/4 ML ML IV ONE (12:21)
[2023-09-30] MEDS: NOREPINEPHRINE BITARTRATE 4,000 MCG in DEXTROSE 5%-WATER - 496 ML IV SCH (15:02)
[2023-09-30] MEDS: dilTIAZem HCL 50 MG/10 ML - 10 ML VIAL IVPUSH ONE (15:03)
[2023-09-30] MEDS: SODIUM CHLORIDE 0.9% 500 ML INFUS.BAG IV ONE ×2 (15:03)
[2023-09-30] MEDS: AMINO ACIDS/PROTEIN HYDROLYS 30 ML LIQUID.PKT PO SCH (17:45)
[2023-09-30] MEDS: D5-1/2NS+10 MEQ KCL - 10 MEQ/1,000 ML INFUS.BAG IV SCH (17:46)
[2023-09-30] MEDS: ACETAMINOPHEN 1000 MG/100 ML BAG IVPB PRN (21:52)
[2023-09-30] MEDS: CHLORHEXIDINE GLUCONATE 4% CLEANSER FOR DECOLONIZATION TP SCH (21:53)
[2023-10-01 07:11] LABS: HEMATOCRIT 29.7 % (32.4-45.2); HEMOGLOBIN 9.9 GM/dL (10.7-15.3); MCH 29.5 pg (25.7-33.7); MCHC 33.4 g/dl (32.0-36.0); MEAN CELL VOLUME 88.4 fl (80-96); MEAN PLT VOLUME 8.2 fl (7.5-11.1); PLATELET COUNT 168 10^3/uL (134-434); RBC 3.36 M/mm3 (3.60-5.2); RDW 13.6 % (11.6-15.6); WHITE BLOOD COUNT 5.1 K/mm3 (4.0-10.0)
[2023-10-01 07:37] LABS: POTASSIUM 3.1 mmol/L (3.5-5.1)
[2023-10-01 07:40] LABS: CALCIUM 7.5 mg/dL (8.5-10.1); MAGNESIUM 1.7 mg/dL (1.8-2.4)
[2023-10-01 07:43] LABS: CREATININE 0.7 mg/dL (0.55-1.3); PHOSPHOROUS 2.1 mg/dL (2.5-4.9)
[2023-10-01 07:45] LABS: BILIRUBIN,TOTAL 0.2 mg/dL (0.2-1)
[2023-10-01 07:47] LABS: ALBUMIN 1.8 g/dl (3.4-5.0)
[2023-10-01] MEDS: KCL 10 MEQ IVPB 10 MEQ/100 ML INFUS.BAG IVPB SCH ×2 (08:37→11:17)
[2023-10-01] MEDS: MAGNESIUM 1GM/D5W - 1 GM/100 ML IVPB IVPB ONE (08:37)
[2023-10-01] MEDS: MIDODRINE HCL 5 MG TABLET PO SCH (09:50)
[2023-10-01] MEDS: ZINC SULFATE 220 MG CAPSULE (FP) PO SCH (09:51)
[2023-10-01] MEDS: ASCORBIC ACID 500 MG TABLET (FP) PO SCH (09:51)
[2023-10-01] MEDS ORDERED: ALBUMIN HUMAN 25% 12.5 GM/50 ML VIAL IV SCH (14:30)
[2023-10-01] MEDS: MAGNESIUM 1GM/D5W 100ML - 100 ML IVPB IVPB ONE (15:11)
[2023-10-01] MEDS: CEFUROXIME AXETIL 250 MG TABLET PO SCH (21:22)
[2023-10-02 06:55] LABS: HEMATOCRIT 32.9 % (32.4-45.2); HEMOGLOBIN 10.7 GM/dL (10.7-15.3); MCH 29.1 pg (25.7-33.7); MCHC 32.4 g/dl (32.0-36.0); MEAN CELL VOLUME 89.6 fl (80-96); MEAN PLT VOLUME 8.5 fl (7.5-11.1); PLATELET COUNT 167 10^3/uL (134-434); RBC 3.67 M/mm3 (3.60-5.2); RDW 13.6 % (11.6-15.6); WHITE BLOOD COUNT 8.6 K/mm3 (4.0-10.0)
[2023-10-02 07:08] LABS: MAGNESIUM 1.9 mg/dL (1.8-2.4); POTASSIUM 3.5 mmol/L (3.5-5.1)
[2023-10-02 07:11] LABS: PHOSPHOROUS 2.8 mg/dL (2.5-4.9)
[2023-10-02 07:15] LABS: CALCIUM 7.9 mg/dL (8.5-10.1); PHOSPHOROUS 2.7 mg/dL (2.5-4.9)
[2023-10-02 07:16] LABS: BLOOD UREA NITROGEN 6.5 mg/dL (7-18); CREATININE 0.7 mg/dL (0.55-1.3); MAGNESIUM 1.9 mg/dL (1.8-2.4)
[2023-10-02 07:17] LABS: BILIRUBIN,TOTAL 0.2 mg/dL (0.2-1); TOT PROT 5.3 g/dl (6.4-8.2)
[2023-10-02] MEDS: PANTOPRAZOLE 40 MG TABLET PO SCH (10:29)
[2023-10-02] MEDS: MAGNESIUM SULF 50% (8.12 MEQ/2 ML-1 GM VIAL) IVPB ONE (11:41)
[2023-10-02] MEDS: D5-1/2NS+10 MEQ KCL - 10 MEQ/1,000 ML INFUS.BAG IV SCH (14:45)
[2023-10-02] MEDS: MIDODRINE HCL 5 MG TABLET PO SCH (18:34)
[2023-10-02] MEDS: CEFUROXIME AXETIL 250 MG TABLET PO SCH (21:38)
[2023-10-02] MEDS ORDERED: MUPIROCIN 2% TOPICAL OINTMENT FOR DECOLONIZATION NS SCH (22:00)
[2023-10-02] MEDS ORDERED: CHLORHEXIDINE GLUCONATE 4% CLEANSER FOR DECOLONIZATION TP SCH (22:00)
[2023-10-03 09:48] LABS: POTASSIUM 3.9 mmol/L (3.5-5.1)
[2023-10-03 09:53] LABS: ALBUMIN 2.1 g/dl (3.4-5.0); CALCIUM 7.8 mg/dL (8.5-10.1)
[2023-10-03 09:54] LABS: BLOOD UREA NITROGEN 8.3 mg/dL (7-18)
[2023-10-03 09:56] LABS: CREATININE 0.7 mg/dL (0.55-1.3)
[2023-10-03 09:58] LABS: BILIRUBIN,TOTAL 0.3 mg/dL (0.2-1); TOT PROT 5.5 g/dl (6.4-8.2)
[2023-10-03] MEDS: ASCORBIC ACID 500 MG TABLET (FP) PO SCH (10:12)
[2023-10-03] MEDS: ZINC SULFATE 220 MG CAPSULE (FP) PO SCH (10:12)
[2023-10-03] MEDS: AMINO ACIDS/PROTEIN HYDROLYS 30 ML LIQUID.PKT PO SCH (10:12)
[2023-10-03] MEDS: PANTOPRAZOLE 40 MG TABLET PO SCH (10:12)
[2023-10-03] MEDS: ENOXAPARIN NA (PORCINE) 40 MG/0.4 ML DISP.SYRIN SQ SCH (10:12)
[2023-10-04 07:11] LABS: BASO % 0.9 % (0-2.0); EOS % 3.3 % (0-4.5); HEMATOCRIT 32.7 % (32.4-45.2); HEMOGLOBIN 10.8 GM/dL (10.7-15.3); LYMPH % 12.1 % (8-40); MCHC 32.9 g/dl (32.0-36.0); MEAN PLT VOLUME 8.5 fl (7.5-11.1); MONO % 4.2 % (3.8-10.2); NEUT % 79.5 % (42.8-82.8); PLATELET COUNT 168 10^3/uL (134-434); RBC 3.72 M/mm3 (3.60-5.2); WHITE BLOOD COUNT 11.1 K/mm3 (4.0-10.0)
[2023-10-04 07:41] LABS: POTASSIUM 3.4 mmol/L (3.5-5.1)
[2023-10-04 07:58] LABS: BLOOD UREA NITROGEN 13.8 mg/dL (7-18); CALCIUM 7.8 mg/dL (8.5-10.1)
[2023-10-04 08:02] LABS: CREATININE 0.6 mg/dL (0.55-1.3)
[2023-10-04] MEDS: MIDODRINE HCL 5 MG TABLET PO SCH (09:06)
[2023-10-04] MEDS: KCL 10 MEQ IVPB 10 MEQ/100 ML INFUS.BAG IVPB SCH ×2 (14:45→17:07)
[2023-10-05] MEDS: D5-1/2NS+10 MEQ KCL - 10 MEQ/1,000 ML INFUS.BAG IV SCH (09:57)
[2023-10-05] MEDS: MIDODRINE HCL 5 MG TABLET PO SCH (10:01)
[2023-10-05] MEDS: METOPROLOL TARTRATE 5 MG/5 ML VIAL IVPUSH ONE ×2 (11:33→11:35)
[2023-10-05 18:28] VITALS: RESP 20
[2023-10-06 07:21] LABS: BASO % 0.5 % (0-2.0); EOS % 4.2 % (0-4.5); HEMATOCRIT 27.6 % (32.4-45.2); HEMOGLOBIN 9.4 GM/dL (10.7-15.3); LYMPH % 15.1 % (8-40); MCH 30.1 pg (25.7-33.7); MCHC 34.3 g/dl (32.0-36.0); MEAN CELL VOLUME 87.9 fl (80-96); MEAN PLT VOLUME 7.8 fl (7.5-11.1); MONO % 5.9 % (3.8-10.2); NEUT % 74.3 % (42.8-82.8); PLATELET COUNT 142 10^3/uL (134-434); RBC 3.13 M/mm3 (3.60-5.2); RDW 13.9 % (11.6-15.6); WHITE BLOOD COUNT 8.6 K/mm3 (4.0-10.0)
[2023-10-06 07:37] LABS: POTASSIUM 3.6 mmol/L (3.5-5.1)
[2023-10-06 07:40] LABS: CALCIUM 7.7 mg/dL (8.5-10.1)
[2023-10-06 07:41] LABS: BLOOD UREA NITROGEN 8.6 mg/dL (7-18)
[2023-10-06 07:44] LABS: CREATININE 0.6 mg/dL (0.55-1.3)
[2023-10-06 09:08] VITALS: BP 122/55; PULSE 88; TEMP 97.7
[2023-10-06] MEDS: D5-1/2NS+10 MEQ KCL - 10 MEQ/1,000 ML INFUS.BAG IV SCH (10:06)
[2023-10-06] MEDS: D5-1/2NS+20 MEQ KCL - 20 MEQ/1,000 ML INFUS.BAG IV SCH (12:00)
[2023-10-07 17:19] VITALS: BMI 27.8
== END 2023-10-06 14:30 | DRG 871 ==
LOC: JER 18:24 → JERBED 20:17 → JICU 09-30 00:58 → J4W 10-02 13:41
PROVIDERS: ADMIT Internal Medicine; ATTEND Internal Medicine
DX: A41.89 Other specified sepsis (principal); J18.9 Pneumonia, unspecified organism; R65.21 Severe sepsis with septic shock; R53.2 Functional quadriplegia; E87.20 Acidosis, unspecified; I48.20 Chronic atrial fibrillation, unspecified; I50.32 Chronic diastolic (congestive) heart failure; N39.0 Urinary tract infection, site not specified; E87.5 Hyperkalemia; N32.81 Overactive bladder; I11.0 Hypertensive heart disease with heart failure; I25.10 Atherosclerotic heart disease of native coronary artery without angina pectoris; M54.50 Low back pain, unspecified; I73.9 Peripheral vascular disease, unspecified; K52.9 Noninfective gastroenteritis and colitis, unspecified; E88.09 Other disorders of plasma-protein metabolism, not elsewhere classified; F03.90 Unspecified dementia, unspecified severity, without behavioral disturbance, psychotic disturbance, mood disturbance, and anxiety; E87.6 Hypokalemia; E77.8 Other disorders of glycoprotein metabolism; E86.0 Dehydration; R00.0 Tachycardia, unspecified; R26.2 Difficulty in walking, not elsewhere classified; M62.81 Muscle weakness (generalized); B96.20 Unspecified Escherichia coli [E. coli] as the cause of diseases classified elsewhere; I25.2 Old myocardial infarction; Z96.641 Presence of right artificial hip joint; Z96.652 Presence of left artificial knee joint
CPT/HCPCS: 0241U-QW; 36415; 71045-TC-FY; 71250-TC; 80048; 80053; 81003; 82728; 82803; 82962; 83540; 83550; 83605; 83735; 84100; 84484; 85025; 85027; 85610; 85730; 86850; 86900; 86901; 87040; 87045; 87046; 87086; 87186; 87205; 87209; 87324; 87425; 87449; 87493; 87798; 87899; 93005; 93010; 97161-GP; 99291; J0131

== ENCOUNTER 2023-10-19 13:32 | Inpatient (IN) | payer OTHER, MEDICARE ==
[2023-10-19 14:26] VITALS: BMI 29.0
[2023-10-19] MEDS ORDERED: HALOPERIDOL LACTATE 5 MG/ML ONE (15:26)
[2023-10-19] MEDS: HALOPERIDOL LACTATE 5 MG/ML IM ONE (15:30)
[2023-10-19 16:22] LABS: BASO % 0.7 % (0-2.0); EOS % 1.3 % (0-4.5); HEMATOCRIT 33.4 % (32.4-45.2); HEMOGLOBIN 11.1 GM/dL (10.7-15.3); LYMPH % 13.5 % (8-40); MCH 29.4 pg (25.7-33.7); MCHC 33.4 g/dl (32.0-36.0); MEAN PLT VOLUME 7.8 fl (7.5-11.1); MONO % 6.7 % (3.8-10.2); NEUT % 77.8 % (42.8-82.8); PLATELET COUNT 293 10^3/uL (134-434); RBC 3.79 M/mm3 (3.60-5.2); RDW 14.6 % (11.6-15.6); WHITE BLOOD COUNT 10.1 K/mm3 (4.0-10.0)
[2023-10-19 16:32] LABS: INR 1.18 (0.83-1.09); PROTHROMBIN TIME (PATIENT) 13.3 SEC (9.7-13.0)
[2023-10-19 16:35] LABS: ACTIVATED PTT 25.9 SECONDS (25.2-36.5)
[2023-10-19 16:50] LABS: POTASSIUM 4.7 mmol/L (3.5-5.1)
[2023-10-19 16:52] LABS: ALBUMIN 2.4 g/dl (3.4-5.0); CALCIUM 8.6 mg/dL (8.5-10.1)
[2023-10-19 16:53] LABS: BLOOD UREA NITROGEN 21.4 mg/dL (7-18)
[2023-10-19 16:57] LABS: BILIRUBIN,TOTAL 0.4 mg/dL (0.2-1); TOT PROT 6.6 g/dl (6.4-8.2)
[2023-10-19 17:22] LABS: EPI CELLS 32 /uL (0-25.1); HYALINE CASTS 7 /uL (0-3.1); URINE APPEARANCE TURBID; URINE BACTERIA 5307 /uL (0-1359); URINE BILIRUBIN NEGATIVE (NEGATIVE); URINE COLOR YELLOW; URINE GLUCOSE (UA) NEGATIVE (NEGATIVE); URINE KETONE 1+ (NEGATIVE); URINE LEUK ESTERASE 3+ (NEGATIVE); URINE NITRITE POSITIVE (NEGATIVE); URINE PROTEIN 2+ (NEGATIVE); URINE WBC 24916 /uL (0-25.8); YEAST REVIEW (NEGATIVE)
[2023-10-19] MEDS ORDERED: CEFTRIAXONE 1 GM/50 ML BAG ONE (19:00)
[2023-10-19] MEDS: CEFTRIAXONE 1 GM in DEXTROSE 5%-WATER - 100 ML IVPB ONE (19:04)
[2023-10-19 19:22] LABS: URINE RBC FEW /uL (0-23.9)
[2023-10-19] MEDS ORDERED: VANCOMYCIN 1 GRAM (PRE-DOCKED) 1,000 MG/250 ML BAG IVPB ONE (19:40)
[2023-10-19] MEDS: VANCOMYCIN 1,000 MG in DEXTROSE 5%-WATER - 250 ML IVPB ONE (20:56)
[2023-10-20] MEDS ORDERED: ACETAMINOPHEN 325 MG TABLET (FP) PO PRN (00:38)
[2023-10-20] MEDS: PANTOPRAZOLE 40 MG TABLET PO SCH (00:41)
[2023-10-20] MEDS: MELATONIN 5 MG TABLETS PO SCH (03:02)
[2023-10-20] MEDS: ASCORBIC ACID 500 MG TABLET (FP) PO SCH (03:02)
[2023-10-20] MEDS: METOPROLOL TARTRATE 25 MG TABLET (FP) PO SCH (03:02)
[2023-10-20] MEDS ORDERED: HEPARIN NA (PORCINE) 5,000 UNITS/ML 1ML VIAL SQ SCH (06:00)
[2023-10-20] MEDS: HEPARIN NA (PORCINE) 5,000 UNITS/ML 1ML VIAL SQ SCH (06:45)
[2023-10-20 08:19] LABS: BASO % 0.6 % (0-2.0); EOS % 1.7 % (0-4.5); HEMATOCRIT 30.9 % (32.4-45.2); HEMOGLOBIN 10.1 GM/dL (10.7-15.3); MCH 28.9 pg (25.7-33.7); MCHC 32.8 g/dl (32.0-36.0); MEAN CELL VOLUME 88.3 fl (80-96); MEAN PLT VOLUME 7.9 fl (7.5-11.1); MONO % 8.4 % (3.8-10.2); NEUT % 72.3 % (42.8-82.8); PLATELET COUNT 248 10^3/uL (134-434); RDW 14.6 % (11.6-15.6); WHITE BLOOD COUNT 7.3 K/mm3 (4.0-10.0)
[2023-10-20] MEDS: VITAMIN A 10,000 UNITS (3000 MCG) CAPSULE PO SCH (11:12)
[2023-10-20] MEDS: TOLTERODINE TARTRATE LA 4 MG CAP.SR.24H (FP) PO SCH (11:12)
[2023-10-20] MEDS: ZINC SULFATE 220 MG CAPSULE (FP) PO SCH (11:13)
[2023-10-20] MEDS: MEMANTINE HCL 10 MG TABLET (FP) PO SCH (11:13)
[2023-10-20] MEDS: CHOLECALCIFEROL (VIT D3) 5000 UNITS (125 MCG) CAP PO SCH (11:14)
[2023-10-20] MEDS: MULTIVITAMINS THER W-MINERALS COMBO TABLET (FP) PO SCH (11:14)
[2023-10-20] MEDS: LIDOCAINE 5% TOPICAL PATCH TP SCH (11:17)
[2023-10-20] MEDS: PIPERACILLIN/TAZOB 3.375 GM 3.375 GM in DEXTROSE 5%-WATER - 50 ML IVPB SCH (14:19)
[2023-10-20] MEDS: LIDOCAINE PATCH REMOVAL MC SCH (22:16)
[2023-10-21] MEDS ORDERED: D5-1/2NS+10 MEQ KCL - 10 MEQ/1,000 ML INFUS.BAG IV SCH (11:45)
[2023-10-21] MEDS: D5-1/2NS+10 MEQ KCL - 10 MEQ/1,000 ML INFUS.BAG IV SCH (14:49)
[2023-10-21] MEDS: COLLAGENASE CLOSTRIDIUM HIST. 30 GRAMS TUBE TP SCH (18:22)
[2023-10-22 09:16] LABS: BASO % 0.7 % (0-2.0); EOS % 4.5 % (0-4.5); HEMATOCRIT 32.5 % (32.4-45.2); HEMOGLOBIN 10.3 GM/dL (10.7-15.3); LYMPH % 20.2 % (8-40); MCH 28.5 pg (25.7-33.7); MCHC 31.8 g/dl (32.0-36.0); MEAN CELL VOLUME 89.6 fl (80-96); MEAN PLT VOLUME 8.2 fl (7.5-11.1); MONO % 6.5 % (3.8-10.2); NEUT % 68.1 % (42.8-82.8); PLATELET COUNT 259 10^3/uL (134-434); RBC 3.62 M/mm3 (3.60-5.2); RDW 14.9 % (11.6-15.6); WHITE BLOOD COUNT 6.5 K/mm3 (4.0-10.0)
[2023-10-22 09:28] LABS: POTASSIUM 3.8 mmol/L (3.5-5.1)
[2023-10-22 09:30] LABS: CALCIUM 8.3 mg/dL (8.5-10.1)
[2023-10-22 09:31] LABS: BLOOD UREA NITROGEN 13.1 mg/dL (7-18)
[2023-10-22 09:32] LABS: MAGNESIUM 2.4 mg/dL (1.8-2.4)
[2023-10-22 09:34] LABS: CREATININE 0.8 mg/dL (0.55-1.3)
[2023-10-22 10:09] LABS: ERYTHROCYTE SEDIMENTATION RATE 101 mm/hr (0-30)
[2023-10-22] MEDS: CEPHALEXIN MONOHYDRATE 500 MG CAPSULE (UD) PO SCH (17:33)
[2023-10-22 23:55] VITALS: RESP 18
[2023-10-23 06:34] VITALS: BP 136/69; PULSE 80; TEMP 97.5
== END 2023-10-23 14:20 | disposition home or self-care (01) | DRG 603 ==
LOC: JER 13:32 → JERBED 18:20 → J8W 10-20 01:39
PROVIDERS: ADMIT Internal Medicine; ATTEND Internal Medicine
DX: L03.317 Cellulitis of buttock (principal); N39.0 Urinary tract infection, site not specified; I48.20 Chronic atrial fibrillation, unspecified; B96.20 Unspecified Escherichia coli [E. coli] as the cause of diseases classified elsewhere; L08.9 Local infection of the skin and subcutaneous tissue, unspecified; I25.10 Atherosclerotic heart disease of native coronary artery without angina pectoris; F03.90 Unspecified dementia, unspecified severity, without behavioral disturbance, psychotic disturbance, mood disturbance, and anxiety; I10 Essential (primary) hypertension; N32.81 Overactive bladder; L89.152 Pressure ulcer of sacral region, stage 2; L89.610 Pressure ulcer of right heel, unstageable; L89.310 Pressure ulcer of right buttock, unstageable
CPT/HCPCS: 36415; 71045-TC-FY; 73610-TC-RT-FY; 73630-TC-RT-FY; 80048; 80053; 81003; 82728; 83540; 83550; 83605; 83735; 84100; 85025; 85610; 85651; 85730; 86140; 87070; 87086; 87186; 87205; 87635; 93005; 93010; 97116-GP; 97161-GP; 99285-25; J1644

== ENCOUNTER 2023-11-10 19:10 | Inpatient (IN) | payer OTHER, MEDICARE ==
[2023-11-10 20:52] LABS: BASO % 1.1 % (0-2.0); EOS % 5.5 % (0-4.5); HEMATOCRIT 33.1 % (32.4-45.2); LYMPH % 23.3 % (8-40); MCHC 33.2 g/dl (32.0-36.0); MEAN CELL VOLUME 87.3 fl (80-96); MEAN PLT VOLUME 7.9 fl (7.5-11.1); MONO % 5.6 % (3.8-10.2); NEUT % 64.5 % (42.8-82.8); PLATELET COUNT 249 10^3/uL (134-434); RBC 3.79 M/mm3 (3.60-5.2); RDW 15.5 % (11.6-15.6)
[2023-11-10 21:02] LABS: INR 1.06 (0.83-1.09); PROTHROMBIN TIME (PATIENT) 12.2 SEC (9.7-13.0)
[2023-11-10 21:05] LABS: ACTIVATED PTT 27.6 SECONDS (25.2-36.5)
[2023-11-10 21:17] LABS: POTASSIUM 4.6 mmol/L (3.5-5.1)
[2023-11-10 21:20] LABS: CALCIUM 8.2 mg/dL (8.5-10.1)
[2023-11-10 21:21] LABS: ALBUMIN 2.3 g/dl (3.4-5.0); BLOOD UREA NITROGEN 22.4 mg/dL (7-18)
[2023-11-10 21:24] LABS: CREATININE 0.9 mg/dL (0.55-1.3)
[2023-11-10 21:25] LABS: TOT PROT 6.3 g/dl (6.4-8.2)
[2023-11-10 21:30] LABS: BILIRUBIN,TOTAL 0.5 mg/dL (0.2-1)
[2023-11-10 21:32] LABS: ERYTHROCYTE SEDIMENTATION RATE 75 mm/hr (0-30)
[2023-11-10] MEDS ORDERED: METOPROLOL TARTRATE 25 MG TABLET (FP) ONE (22:13)
[2023-11-10] MEDS ORDERED: ASCORBIC ACID 500 MG TABLET (FP) ONE (22:13)
[2023-11-10] MEDS ORDERED: PANTOPRAZOLE 40 MG TABLET PO ONE (22:13)
[2023-11-10] MEDS ORDERED: QUEtiapine FUMARATE 100 MG TABLET (FP) ONE (22:13)
[2023-11-10] MEDS ORDERED: MELATONIN 5 MG TABLETS ONE (22:13)
[2023-11-10] MEDS ORDERED: HEPARIN NA (PORCINE) 5,000 UNITS/ML 1ML VIAL ONE (22:14)
[2023-11-10] MEDS: HEPARIN NA (PORCINE) 5,000 UNITS/ML 1ML VIAL SQ SCH (22:40)
[2023-11-10] MEDS: ASCORBIC ACID 500 MG TABLET (FP) PO SCH (22:43)
[2023-11-10] MEDS: MEMANTINE HCL 10 MG TABLET (FP) PO SCH (22:43)
[2023-11-10] MEDS: PANTOPRAZOLE 40 MG TABLET PO SCH (22:43)
[2023-11-10] MEDS: MELATONIN 5 MG TABLETS PO SCH (22:43)
[2023-11-10] MEDS: METOPROLOL TARTRATE 25 MG TABLET (FP) PO SCH (22:43)
[2023-11-10] MEDS: LIDOCAINE 5% TOPICAL PATCH TP SCH (22:43)
[2023-11-10] MEDS: LIDOCAINE PATCH REMOVAL MC SCH (22:43)
[2023-11-11] MEDS: D5-1/2NS+10 MEQ KCL - 10 MEQ/1,000 ML INFUS.BAG IV SCH (00:21)
[2023-11-11 03:02] VITALS: BMI 23.3
[2023-11-11 06:43] LABS: EPI CELLS 10 /uL (0-25.1); HYALINE CASTS 2 /uL (0-3.1); URINE APPEARANCE TURBID; URINE BACTERIA 344 /uL (0-1359); URINE BILIRUBIN NEGATIVE (NEGATIVE); URINE COLOR YELLOW; URINE GLUCOSE (UA) NEGATIVE (NEGATIVE); URINE KETONE TRACE (NEGATIVE); URINE LEUK ESTERASE 3+ (NEGATIVE); URINE NITRITE NEGATIVE (NEGATIVE); URINE PROTEIN 1+ (NEGATIVE); URINE RBC 202 /uL (0-23.9); URINE WBC 10884 /uL (0-25.8)
[2023-11-11 08:55] LABS: BASO % 0.9 % (0-2.0); EOS % 6.4 % (0-4.5); HEMATOCRIT 29.6 % (32.4-45.2); HEMOGLOBIN 9.9 GM/dL (10.7-15.3); LYMPH % 26.9 % (8-40); MCH 29.1 pg (25.7-33.7); MCHC 33.3 g/dl (32.0-36.0); MEAN CELL VOLUME 87.2 fl (80-96); MEAN PLT VOLUME 8.1 fl (7.5-11.1); MONO % 6.5 % (3.8-10.2); NEUT % 59.3 % (42.8-82.8); PLATELET COUNT 210 10^3/uL (134-434); RDW 15.4 % (11.6-15.6); WHITE BLOOD COUNT 5.9 K/mm3 (4.0-10.0)
[2023-11-11] MEDS: MULTIVITAMINS THER W-MINERALS COMBO TABLET (FP) PO SCH (09:07)
[2023-11-11] MEDS: ZINC SULFATE 220 MG CAPSULE (FP) PO SCH (09:07)
[2023-11-11 09:10] LABS: URINE CRYSTALS NONE SEEN /hpf
[2023-11-11 09:15] LABS: POTASSIUM 4.1 mmol/L (3.5-5.1)
[2023-11-11 09:17] LABS: CALCIUM 7.8 mg/dL (8.5-10.1)
[2023-11-11 09:18] LABS: BLOOD UREA NITROGEN 17.9 mg/dL (7-18)
[2023-11-11 09:20] LABS: CREATININE 0.7 mg/dL (0.55-1.3)
[2023-11-11] MEDS: COLLAGENASE CLOSTRIDIUM HIST. 30 GRAMS TUBE TP SCH (09:34)
[2023-11-11] MEDS: CHOLECALCIFEROL (VIT D3) 1,000 UNIT (25 MCG) TABLET PO SCH (09:34)
[2023-11-11] MEDS: TOLTERODINE TARTRATE LA 4 MG CAP.SR.24H (FP) PO SCH (09:56)
[2023-11-11] MEDS: VITAMIN A 10,000 UNITS (3000 MCG) CAPSULE PO SCH (09:57)
[2023-11-11] MEDS ORDERED: COLLAGENASE CLOSTRIDIUM HIST. 30 GRAMS TUBE TP SCH (10:00)
[2023-11-11] MEDS: CEFAZOLIN 1 GM in DEXTROSE 5%-WATER - 50 ML IVPB SCH (10:49)
[2023-11-12] MEDS: ACETAMINOPHEN 325 MG TABLET (FP) PO PRN (01:32)
[2023-11-12 08:44] LABS: EOS % 7.6 % (0-4.5); HEMATOCRIT 30.6 % (32.4-45.2); HEMOGLOBIN 10.2 GM/dL (10.7-15.3); MCH 29.1 pg (25.7-33.7); MCHC 33.2 g/dl (32.0-36.0); MEAN CELL VOLUME 87.5 fl (80-96); MONO % 4.9 % (3.8-10.2); NEUT % 63.5 % (42.8-82.8); PLATELET COUNT 203 10^3/uL (134-434); RDW 15.4 % (11.6-15.6); WHITE BLOOD COUNT 5.6 K/mm3 (4.0-10.0)
[2023-11-12 09:04] LABS: POTASSIUM 3.8 mmol/L (3.5-5.1)
[2023-11-12 09:07] LABS: CALCIUM 8.2 mg/dL (8.5-10.1)
[2023-11-12 09:08] LABS: BLOOD UREA NITROGEN 14.7 mg/dL (7-18)
[2023-11-12 09:11] LABS: CREATININE 0.8 mg/dL (0.55-1.3)
[2023-11-13] MEDS: D5-1/2NS+10 MEQ KCL - 10 MEQ/1,000 ML INFUS.BAG IV SCH ×2 (11:41→18:18)
[2023-11-14] MEDS: AMINO ACIDS/PROTEIN HYDROLYS 30 ML LIQUID.PKT PO SCH (08:01)
[2023-11-14 11:17] LABS: BASO % 0.4 % (0-2.0); EOS % 9.7 % (0-4.5); HEMATOCRIT 31.6 % (32.4-45.2); HEMOGLOBIN 10.5 GM/dL (10.7-15.3); LYMPH % 22.5 % (8-40); MCH 29.3 pg (25.7-33.7); MCHC 33.4 g/dl (32.0-36.0); MEAN CELL VOLUME 87.9 fl (80-96); MEAN PLT VOLUME 8.5 fl (7.5-11.1); NEUT % 62.4 % (42.8-82.8); PLATELET COUNT 207 10^3/uL (134-434); RDW 15.6 % (11.6-15.6); WHITE BLOOD COUNT 6.9 K/mm3 (4.0-10.0)
[2023-11-15] MEDS ORDERED: CEPHALEXIN MONOHYDRATE 500 MG CAPSULE (UD) PO SCH (22:00)
[2023-11-16] MEDS: CEPHALEXIN MONOHYDRATE 500 MG CAPSULE (UD) PO SCH (09:06)
[2023-11-17 14:17] VITALS: TEMP 98.1
[2023-11-17 14:29] VITALS: BP 116/52; PULSE 70; RESP 17
== END 2023-11-17 15:18 | disposition home or self-care (01) | DRG 602 ==
LOC: JER 19:10 → JERBED 21:41 → J6S 11-11 01:26
PROVIDERS: ADMIT Internal Medicine; ATTEND Internal Medicine
DX: L03.317 Cellulitis of buttock (principal); L89.313 Pressure ulcer of right buttock, stage 3; R53.2 Functional quadriplegia; I48.20 Chronic atrial fibrillation, unspecified; L89.152 Pressure ulcer of sacral region, stage 2; L89.610 Pressure ulcer of right heel, unstageable; F03.90 Unspecified dementia, unspecified severity, without behavioral disturbance, psychotic disturbance, mood disturbance, and anxiety; I10 Essential (primary) hypertension; I73.9 Peripheral vascular disease, unspecified; E86.0 Dehydration; I25.10 Atherosclerotic heart disease of native coronary artery without angina pectoris
CPT/HCPCS: 36415; 71045-TC-FY; 72170-TC-FY; 80048; 80053; 81003; 82728; 83540; 83550; 83605; 84484; 85025; 85610; 85651; 85730; 86140; 86850; 86900; 86901; 87040; 87086; 87635; 93005; 93010; 99285-25; J1644

== ENCOUNTER 2023-12-21 15:38 | Inpatient (IN) | payer OTHER, MEDICARE ==
[2023-12-21] MEDS: SODIUM CHLORIDE 1,000 ML IV STA ×2 (16:16→18:17)
[2023-12-21] MEDS ORDERED: VANCOMYCIN 1 GRAM (PRE-DOCKED) 1,000 MG/250 ML BAG IVPB ONE (16:47)
[2023-12-21] MEDS ORDERED: PIPERACILLIN/TAZOB 4.5 GM 4.5 GM/100 ML BAG IVPB ONE (16:47)
[2023-12-21 16:57] LABS: VENOUS O2 SATURATION 66.3 % (70-80); VENOUS PH 7.323 (7.310-7.410)
[2023-12-21] MEDS: VANCOMYCIN 1,000 MG in DEXTROSE 5%-WATER - 250 ML IVPB ONE (17:13)
[2023-12-21] MEDS: PIPERACILLIN/TAZOB 4.5 GM 4.5 GM in DEXTROSE 5%-WATER 100 ML IVPB ONE (17:13)
[2023-12-21 17:15] LABS: BASO % 0.2 % (0-2.0); EOS % 0.3 % (0-4.5); HEMATOCRIT 36.4 % (32.4-45.2); HEMOGLOBIN 11.8 GM/dL (10.7-15.3); LYMPH % 14.5 % (8-40); MCH 28.8 pg (25.7-33.7); MCHC 32.4 g/dl (32.0-36.0); MEAN PLT VOLUME 8.1 fl (7.5-11.1); MONO % 4.3 % (3.8-10.2); NEUT % 80.7 % (42.8-82.8); PLATELET COUNT 175 10^3/uL (134-434); RDW 17.1 % (11.6-15.6); WHITE BLOOD COUNT 10.4 K/mm3 (4.0-10.0)
[2023-12-21] MEDS ORDERED: NOREPINEPHRINE BITARTRATE 4 MG/4 ML ML IV ONE (17:22)
[2023-12-21] MEDS ORDERED: MIDODRINE HCL 5 MG TABLET ONE (17:22)
[2023-12-21 17:24] LABS: CHLORIDE 113 mmol/L (98-107); SODIUM 142 mmol/L (136-145)
[2023-12-21 17:26] LABS: CALCIUM 8.6 mg/dL (8.5-10.1)
[2023-12-21 17:27] LABS: BLOOD UREA NITROGEN 94.1 mg/dL (7-18); CO2 18 mmol/L (21-32); GLUCOSE,RANDOM 95 mg/dL (74-106)
[2023-12-21 17:30] LABS: SGOT/AST 78 U/L (15-37); SGPT/ALT 38 U/L (13-61)
[2023-12-21] MEDS: NOREPINEPHRINE BITARTRATE 4,000 MCG in DEXTROSE 5%-WATER - 496 ML IV SCH (17:31)
[2023-12-21] MEDS: MIDODRINE HCL 5 MG TABLET PO ONE (17:31)
[2023-12-21 17:33] LABS: ALK PHOS 117 U/L (45-117)
[2023-12-21 17:34] LABS: ANION GAP 11 mmol/L (4-13); POTASSIUM 8.2 mmol/L (3.5-5.1)
[2023-12-21 18:05] LABS: CHLORIDE 110 mmol/L (98-107); SODIUM 137 mmol/L (136-145)
[2023-12-21 18:07] LABS: CALCIUM 8.8 mg/dL (8.5-10.1)
[2023-12-21 18:08] LABS: BLOOD UREA NITROGEN 91.1 mg/dL (7-18); CO2 18 mmol/L (21-32); GLUCOSE,RANDOM 90 mg/dL (74-106)
[2023-12-21 18:11] LABS: CREATININE 4.1 mg/dL (0.55-1.3)
[2023-12-21 18:35] LABS: ANION GAP 9 mmol/L (4-13); POTASSIUM 9.9 mmol/L (3.5-5.1)
[2023-12-21] MEDS ORDERED: DEXTROSE 50%-WATER 25 GM/50 ML DISP.SYRIN ONE (22:25)
[2023-12-21] MEDS: DEXTROSE 50%-WATER - 25 GM/50 ML VIAL IVPUSH ONE (22:29)
[2023-12-21] MEDS: INSULIN REGULAR HUMAN 100 UNITS/ML *VIAL IVPUSH ONE (22:29)
[2023-12-21] MEDS: MUPIROCIN 2% TOPICAL OINTMENT FOR DECOLONIZATION NS SCH (22:30)
[2023-12-21] MEDS: HYDROCORTISONE SOD SUCCINATE 100 MG/2 ML VIAL IVPB SCH (22:30)
[2023-12-21] MEDS: HEPARIN NA (PORCINE) 5,000 UNITS/ML 1ML VIAL SQ SCH (22:30)
[2023-12-21] MEDS: CHLORHEXIDINE GLUCONATE 4% CLEANSER FOR DECOLONIZATION TP SCH (22:30)
[2023-12-21 23:23] LABS: EPI CELLS >36 /uL (0-25.1); HYALINE CASTS 9 /uL (0-3.1); PH,URINE 5.5 (5.0-8.0); URINE APPEARANCE TURBID; URINE BACTERIA >9,000 /uL (0-1359); URINE BILIRUBIN NEGATIVE (NEGATIVE); URINE COLOR YELLOW; URINE GLUCOSE (UA) NEGATIVE (NEGATIVE); URINE KETONE TRACE (NEGATIVE); URINE LEUK ESTERASE 3+ (NEGATIVE); URINE NITRITE NEGATIVE (NEGATIVE); URINE PROTEIN 2+ (NEGATIVE); URINE UROBILINOGEN 0.2 mg/dL (0.2-1.0); URINE WBC 21386 /uL (0-25.8)
[2023-12-21 23:47] LABS: URINE RBC 2781.6 /uL (0-23.9); YEAST FEW (NEGATIVE)
[2023-12-22] MEDS: NOREPINEPHRINE BITARTRATE/D5W 8 MG/250 ML BAG IVPB SCH (00:37)
[2023-12-22 00:43] LABS: URINE UREA NITROGEN 455 mg/dL (350-1000)
[2023-12-22] MEDS ORDERED: NOREPINEPHRINE BITARTRATE 4,000 MCG in DEXTROSE 5%-WATER - 496 ML IV SCH (01:00)
[2023-12-22 01:24] LABS: POTASSIUM 4.5 mmol/L (3.5-5.1)
[2023-12-22 01:25] LABS: BLOOD UREA NITROGEN 78.8 mg/dL (7-18)
[2023-12-22 01:29] LABS: CREATININE 3.3 mg/dL (0.55-1.3)
[2023-12-22 01:54] LABS: LACTIC ACID 2.4 mmol/L (0.4-2.0)
[2023-12-22] MEDS ORDERED: PIPERACILLIN/TAZOB 4.5 GM 4.5 GM in DEXTROSE 5%-WATER 100 ML IVPB SCH (02:00)
[2023-12-22] MEDS ORDERED: AMIODARONE IN DEXTROSE,ISO-OSM 360 MG/200 ML BAG ONE (02:04)
[2023-12-22] MEDS: VASopressin 40 UNITS/100 ML BAG IV SCH (02:09)
[2023-12-22] MEDS: LACTATED RINGERS SOLUTION 1,000 ML/1,000 ML INFUS.BAG IV STA ×2 (02:10→09:23)
[2023-12-22] MEDS: PIPERACILLIN/TAZOB 4.5 GM 4.5 GM in DEXTROSE 5%-WATER 100 ML IVPB SCH (02:10)
[2023-12-22] MEDS: AMIODARONE IN DEXTROSE,ISO-OSM 360 MG/200 ML BAG IV SCH ×2 (02:11→08:31)
[2023-12-22] MEDS: ACETAMINOPHEN 1000 MG/100 ML BAG IVPB PRN (04:47)
[2023-12-22] MEDS: DEXMEDETOMIDINE PREMIX 400 MCG/100 ML BAG IVPB SCH (06:15)
[2023-12-22 07:26] LABS: ARTERIAL BLD GAS O2 SATURATION 99.6 % (95-98); ARTERIAL BLOOD GAS BASE EXCESS -11.5 mmol/L (-2-2); ARTERIAL BLOOD GAS PO2 264.4 mmHg (80-100); ARTERIAL BLOOD GAS pH 7.387 (7.350-7.450)
[2023-12-22 07:36] LABS: HEMATOCRIT 33.5 % (32.4-45.2); HEMOGLOBIN 10.7 GM/dL (10.7-15.3); MCH 28.5 pg (25.7-33.7); MCHC 31.9 g/dl (32.0-36.0); MEAN CELL VOLUME 89.5 fl (80-96); MEAN PLT VOLUME 8.2 fl (7.5-11.1); PLATELET COUNT 184 10^3/uL (134-434); RBC 3.74 M/mm3 (3.60-5.2); RDW 17.2 % (11.6-15.6); WHITE BLOOD COUNT 11.4 K/mm3 (4.0-10.0)
[2023-12-22 07:50] LABS: POTASSIUM 5.3 mmol/L (3.5-5.1)
[2023-12-22 07:54] LABS: CALCIUM 8.1 mg/dL (8.5-10.1)
[2023-12-22 07:55] LABS: ALBUMIN 1.8 g/dl (3.4-5.0); BLOOD UREA NITROGEN 75.6 mg/dL (7-18); MAGNESIUM 2.5 mg/dL (1.8-2.4)
[2023-12-22 07:58] LABS: CREATININE 3.1 mg/dL (0.55-1.3)
[2023-12-22 07:59] LABS: BILIRUBIN,TOTAL 0.4 mg/dL (0.2-1); LACTIC ACID 2.5 mmol/L (0.4-2.0); PHOSPHOROUS 3.9 mg/dL (2.5-4.9)
[2023-12-22 08:00] LABS: TOT PROT 5.8 g/dl (6.4-8.2)
[2023-12-22] MEDS ORDERED: LACTATED RINGERS SOLUTION 1,000 ML/1,000 ML INFUS.BAG IV SCH (08:30)
[2023-12-22] MEDS: LACTATED RINGERS SOLUTION 1,000 ML/1,000 ML INFUS.BAG IV SCH (08:52)
[2023-12-22 09:11] LABS: PLATELET ESTIMATE ADEQUATE
[2023-12-22] MEDS: PANTOPRAZOLE SODIUM 40 MG VIAL IVPUSH SCH (09:23)
[2023-12-22] MEDS ORDERED: SODIUM CHLORIDE 1,000 ML IV SCH (10:30)
[2023-12-22] MEDS: CLINDAMYCIN 600MG PREMIX IVPB 600 MG/50 ML BAG IVPB ONE (11:18)
[2023-12-22] MEDS ORDERED: SODIUM BICARBONATE 8.4% 50 MEQ/50 ML DISP.SYRIN IVPUSH ONE (11:30)
[2023-12-22] MEDS: MORPHINE SULFATE/0.9% NACL/PF 100 MG/100 ML BAG IVPB SCH ×2 (11:53→12:06)
[2023-12-22 12:20] VITALS: BP 81/63; PULSE 130; RESP 23; TEMP 99.2
[2023-12-22 13:53] VITALS: BMI 19.0
[2023-12-22] MEDS ORDERED: VANCOMYCIN/WATER FOR INJ (PEG) 1,000 MG/200 ML BAG IVPB SCH (17:00)
[2023-12-22] MEDS ORDERED: VANCOMYCIN 1,000 MG in DEXTROSE 5%-WATER - 250 ML IVPB SCH (17:00)
[2023-12-22] MEDS ORDERED: CLINDAMYCIN 600MG PREMIX IVPB 600 MG/50 ML BAG IVPB SCH (18:00)
[2023-12-22] MEDS ORDERED: PIPERACILLIN/TAZOB 2.25 GM 2.25 GM in DEXTROSE 5%-WATER - 50 ML IVPB SCH (18:00)
== END 2023-12-22 14:50 | disposition expired | DRG 871 ==
LOC: JER 15:38 → JERBED 20:41 → JICU 21:14
PROVIDERS: ADMIT Internal Medicine Pulmonary Disease; ATTEND Internal Medicine Pulmonary Disease
PROC: 05HN33Z Insertion of Infusion Device into Left Internal Jugular Vein, Percutaneous Approach (ICD-10-PCS; principal; 2023-12-22)
PROC: B544ZZA Ultrasonography of Left Jugular Veins, Guidance (ICD-10-PCS; 2023-12-22)
PROC: 4A133B1 Monitoring of Arterial Pressure, Peripheral, Percutaneous Approach (ICD-10-PCS; 2023-12-22)
PROC: 4A133J1 Monitoring of Arterial Pulse, Peripheral, Percutaneous Approach (ICD-10-PCS; 2023-12-22)
DX: A41.9 Sepsis, unspecified organism (principal); J18.9 Pneumonia, unspecified organism; L89.154 Pressure ulcer of sacral region, stage 4; R65.21 Severe sepsis with septic shock; J96.01 Acute respiratory failure with hypoxia; I48.20 Chronic atrial fibrillation, unspecified; R64 Cachexia; N39.0 Urinary tract infection, site not specified; E87.20 Acidosis, unspecified; Z68.1 Body mass index [BMI] 19.9 or less, adult; I11.0 Hypertensive heart disease with heart failure; E03.9 Hypothyroidism, unspecified; F03.90 Unspecified dementia, unspecified severity, without behavioral disturbance, psychotic disturbance, mood disturbance, and anxiety; R62.7 Adult failure to thrive; L89.612 Pressure ulcer of right heel, stage 2; I25.10 Atherosclerotic heart disease of native coronary artery without angina pectoris; E86.0 Dehydration; I50.9 Heart failure, unspecified
CPT/HCPCS: 0241U-QW; 36415; 36600; 70450-TC; 71045-TC-FY; 71250-TC; 74176-TC; 80048; 80053; 81003; 82308; 82340; 82570; 82803; 82962; 83605; 83735; 84100; 84300; 84439; 84443; 84484; 84540; 85025; 86140; 86850; 86900; 86901; 87040; 87086; 87186; 93005; 93010; 93308; 99285-25; J0131; J1644; J3490